=== PATIENT | male | born 1950 | race African-American/Black ===

== ENCOUNTER 2019-08-24 16:46 | Emergency (ER) | payer OTHER ==
[~2019-08-24] VITALS: Ht 188 cm; Wt 139.0 kg
--- NOTE | 2019-08-24 17:24 | PHYS DOC ---
Adult General Chief Complaint Chief Complaint: OVERDOSE HPI HPI 69-year-old male presents with concern for overdose. [facility] Everything he remembers is that he woke up to EMS and was told that a neighbor called because he passed out. Patient admits to snorting heroin. 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 He uses the heroin because itchy rhythm buying prescription pain medicine on street. [facility] He states that he took pain medicine for back pain. Patient does not have any complaints at this time. He was given 2 mg of Narcan IM. He woke up and had normal vitals shortly afterwards. He has no other complaints. (SAM AQUINO DO) Review of Systems Review of Systems Constitutional: Denies fever or chills [] Eyes: Denies change in visual acuity, redness, or eye pain [] HENT: Denies nasal congestion or sore throat [] Respiratory: Denies cough or shortness of breath [] Cardiovascular: No additional information not addressed in HPI [] GI: Denies abdominal pain, nausea, vomiting, bloody stools or diarrhea [] : Denies dysuria or hematuria [] Musculoskeletal: Chronic back pain[] Integument: Denies rash or skin lesions [] Neurologic: Denies headache, focal weakness or sensory changes [] Endocrine: Denies polyuria or polydipsia [] All other systems were reviewed and found to be within normal limits, except as documented in this note. (SAM AQUINO DO) Allergies Allergies Allergies Coded Allergies Type Severity Reaction Last Updated Verified No Known Drug Allergies 08/24/19 No (SAM AQUINO DO) Physical Exam Physical Exam Constitutional: Well developed, well nourished, no acute distress, non-toxic appearance. [] HENT: Normocephalic, atraumatic, bilateral external ears normal, oropharynx mo ist, no oral exudates, nose normal. Poor dentition[] Eyes: PERRLA, EOMI, conjunctiva normal, no discharge. [] Neck: Normal range of motion, no tenderness, supple, no stridor. [] Cardiovascular:Heart rate regular rhythm, no murmur [] Lungs & Thorax: Bilateral breath sounds clear to auscultation [] Abdomen: Bowel sounds normal, soft, no tenderness, no masses, no pulsatile masses. [] Skin: Skin scarring consistent with previous IV drug use, not recent[] Back: No tenderness, no CVA tenderness. [] Extremities: No tenderness, no cyanosis, no clubbing, ROM intact, no edema. [] Neurologic: Alert and oriented X 3, normal motor function, normal sensory function, no focal deficits noted. [] Psychologic: Affect normal, judgement normal, mood normal. [] (SAM AQUINO DO) EKG EKG Sinus tachycardia, rate 106, no ST elevations or depressions.[] (SAM AQUINO DO) Radiology/Procedures Radiology/Procedures [] (SAM AQUINO DO) Course & Med Decision Making Course & Med Decision Making Pertinent Labs and Imaging studies reviewed. (See chart for details) The patient's workup is pending. We're unable to do an IV at this time is scarred veins. I do not believe it is immediately necessary given he is stable and cooperative. We will address this issue if his condition changes. We will observe him for a period time to make sure his Narcan does not wear off and he loses consciousness again. I'm signing the patient out to Dr. Dorsey at 1800. He will determine his final disposition. [] (SAM AQUINO DO) Course & Med Decision Making Pt. alert and oriented. Patient left before final disposition. Patient encouraged to avoid further drug abuse. Patient encouraged Any concerns. Patient is ambulatory without problems. Patient encouraged to follow at [facility] and get in a narcotics abuse program. Impression- 1. Apparent narcotic abuse (CARIE DORSEY MD) Dragon Disclaimer Dragon Disclaimer This electronic medical record was generated, in whole or in part, using a voice recognition dictation system. (SAM AQUINO DO) Departure Departure: Impression: Primary Impression: Accidental heroin overdose Disposition: HOME/RESIDENCE PRIOR TO ADM Condition: STABLE Referrals: PCP,NO (PCP) Problem Qualifiers Primary Impression: Accidental heroin overdose Encounter type: initial encounter Qualified Codes: T40.1X1A - Poisoning by heroin, accidental (unintentional), initial encounter SAM AQUINO DO Aug 24, 2019 17:24 CARIE DORSEY MD Aug 25, 2019 17:44
[2019-08-24 17:58] LABS: BASO # 0.1 x10^3/uL (0.0-0.2); BASO % 1 % (0-3); EOS % 0 % (0-3); HEMOGLOBIN 13.2 g/dL (13.0-17.5); LYMPH # 1.5 x10^3/uL (1.0-4.8); LYMPH % 18 % (24-48); MEAN CORPUSCULAR HEMOGLOBIN 29 pg (25-35); MEAN CORPUSCULAR HGB CONC 33 g/dL (31-37); MEAN CORPUSCULAR VOLUME 87 fL (79-100); MONO # 0.6 x10^3/uL (0.0-1.1); MONO % 7 % (0-9); NEUT # 6.2 x10^3uL (1.8-7.7); NEUT % 74 % (31-73); PLATELET COUNT 220 x10^3/uL (140-400); RED BLOOD COUNT 4.58 x10^6/uL (4.30-5.70); RED CELL DISTRIBUTION WIDTH 14.1 % (11.5-14.5); WHITE BLOOD COUNT 8.4 x10^3/uL (4.0-11.0)
[2019-08-24 18:04] LABS: CALCIUM 10.2 mg/dL (8.5-10.1); CREATININE 2.9 mg/dL (0.7-1.3); GFR 21.7; POTASSIUM 5.8 mmol/L (3.5-5.1)
[2019-08-24 18:11] LABS: ALBUMIN 4.6 g/dL (3.4-5.0); ALBUMIN/GLOBULIN RATIO 0.8 (1.0-1.7); TOTAL BILIRUBIN 0.3 mg/dL (0.2-1.0); TOTAL PROTEIN 10.1 g/dL (6.4-8.2)
[2019-08-24 18:45] VITALS: BP 137/82
--- NOTE | 2019-08-26 06:46 | EKG ---
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
== END 2019-08-24 18:45 | disposition left against medical advice (07) ==
LOC: ER 16:46
DX: T40.1X1A Poisoning by heroin, accidental (unintentional), initial encounter (principal); F19.10 Other psychoactive substance abuse, uncomplicated; G89.29 Other chronic pain; Y92.89 Other specified places as the place of occurrence of the external cause
CPT/HCPCS: 36415; 80053; 85025; 93005; 99284